=== PATIENT | female | born 1955 | race Caucasian/White ===

== ENCOUNTER → 2018-07-09 | Outpatient (CLI) | payer OTHER ==
[~2018-07-09] MED LIST: LANTUS100 UNIT/M SUBQ; LYRICA 50 MG50 MG PO; MELATONIN3 MG PO; NOVOLOG100 UNIT/1 SUBQ; SYNTHROID100 MCG PO; SYNTHROID25 MCG PO; TURMERIC500 M2 PO; ZOLOFT50 MG PO
== END ==
LOC: M.RAD 08:50
DX: Z12.31 Encounter for screening mammogram for malignant neoplasm of breast (principal)